=== PATIENT | female | born 1940 | race African-American/Black ===

== ENCOUNTER 2022-09-27 04:45 | Inpatient (IN) | payer MEDICARE, OTHER ==
[~2022-09-27] VITALS: Ht 165.1 cm; Wt 77.9 kg
[2022-09-27] MEDS ORDERED: IPRATROPIUM BROM 0.5 MG/2.5ML INH SOL NEB ONE (06:00)
[2022-09-27] MEDS ORDERED: ALBUTEROL SULF 2.5 MG/0.5ML(0.5%) NEB SOLN NEB ONE (06:00)
[2022-09-27] MEDS ORDERED: FUROSEMIDE 40 MG/4 ML VIAL IV ONE ×2 (06:45→10:45)
[2022-09-27 06:58] LABS: Basophils # (auto) 0 10 ^3/uL (0-0.2); Eosinophils # (auto) 0 10 ^3/uL (0-0.8); Hematocrit 33.3 % (36.0-46.0); Lymphocytes # (auto) 0.8 10 ^3/uL (0.4-5.4); Monocytes # (auto) 0.4 10 ^3/uL (0-1.3)
[2022-09-27 07:01] LABS: Basophils % (auto) 0.5 % (0.0-2.0); Eosinophils % (auto) 0.4 % (0.0-7.0); Hemoglobin 10.8 g/dL (12.2-16.2); Lymphocytes % (auto) 11.9 % (10.0-50.0); Mean Corpuscular Hemoglobin 25.5 pg (28.0-32.0); Mean Corpuscular Hgb Conc. 32.6 g/dL (32.0-36.0); Mean Corpuscular Volume 78.3 fL (80.0-100.0); Monocytes % (auto) 5.4 % (0.0-12.0); Neutrophils # (auto) 5.5 10 ^3/uL (1.6-8.6); Neutrophils % (auto) 81.8 % (37.0-80.0); Red Blood Cells 4.25 10^6/uL (4.0-5.20); Red Cell Distribution Width 17.4 % (11.8-14.3); White Blood Cell 6.8 10^3/uL (4.4-10.8)
[2022-09-27 07:13] LABS: INR 1.02 (0.9-1.15); Partial Thromboplastin Time 28.3 sec (24.6-33.4)
[2022-09-27 07:14] LABS: Albumin 3.2 g/dL (3.4-5.0); Calcium 8.6 mg/dL (8.5-10.1); Magnesium 2.5 mg/dL (1.6-2.6); Potassium 3.6 mmol/L (3.5-5.1)
[2022-09-27 07:19] LABS: BUN/Creatinine Ratio 19.8; Bilirubin, Total 0.6 mg/dL (0.2-1.0); Total Protein 7.6 g/dL (6.4-8.2)
[2022-09-27] MEDS ORDERED: HYDROcodone-ACET 5/325MG TAB PO ONE (07:45)
[2022-09-27] MEDS ORDERED: MORPHINE SULFATE INJ 2 MG/ml SYRG IV PRN ×2 (10:30)
[2022-09-27] MEDS ORDERED: NITROGLYCERIN 0.4 MG SL TAB SL PRN (10:30)
[2022-09-27] MEDS ORDERED: ACETAMINOPHEN 325 MG TAB PO PRN (10:30)
[2022-09-27] MEDS ORDERED: METO25TA93 PO (10:37)
[2022-09-27] MEDS ORDERED: POTA-167 PO (10:37)
[2022-09-27] MEDS ORDERED: AMLO-496 PO (10:37)
[2022-09-27] MEDS ORDERED: FURO40TA4 PO (10:37)
[2022-09-27] MEDS ORDERED: IPRATROPIUM BROM 0.5 MG/2.5ML INH SOL NEB PRN (10:45)
[2022-09-27] MEDS ORDERED: ALBUTEROL SULF 2.5 MG/0.5ML(0.5%) NEB SOLN NEB PRN (10:45)
[2022-09-27] MEDS: IPRATROPIUM BROM 0.5 MG/2.5ML INH SOL NEB SCH ×2 (11:19→18:51)
[2022-09-27] MEDS: ALBUTEROL SULF 2.5 MG/0.5ML(0.5%) NEB SOLN NEB SCH ×2 (11:19→18:51)
[2022-09-27 11:29] LABS: Cholesterol 154 mg/dL (< 200); HDL Cholesterol 75 mg/dL (40-59); LDL Cholesterol 67 mg/dL (< 100); Triglycerides 57 mg/dL (< 150)
[2022-09-27 11:45] VITALS: BP 157/63
[2022-09-27 14:22] LABS: Urine Bacteria FEW /hpf (None Seen); Urine Blood 2+ /uL (Negative); Urine Specific Gravity 1.008 (1.001-1.035); Urine WBC 2 /hpf (0 - 5)
[2022-09-27] MEDS: HYDROcodone-ACET 5/325MG TAB PO PRN ×2 (15:11→21:23)
[2022-09-27] MEDS: FUROSEMIDE 40 MG TAB PO SCH (22:20)
[2022-09-28 05:19] VITALS: BP 137/62
[2022-09-28] MEDS: HYDROcodone-ACET 5/325MG TAB PO PRN ×3 (06:06→17:24)
[2022-09-28 06:40] LABS: BUN/Creatinine Ratio 15.9; Calcium 8.7 mg/dL (8.5-10.1); Potassium 3.4 mmol/L (3.5-5.1)
[2022-09-28 06:42] LABS: Bilirubin, Total 0.5 mg/dL (0.2-1.0); Total Protein 7.2 g/dL (6.4-8.2)
[2022-09-28] MEDS: IPRATROPIUM BROM 0.5 MG/2.5ML INH SOL NEB SCH ×3 (06:49→18:44)
[2022-09-28] MEDS: ALBUTEROL SULF 2.5 MG/0.5ML(0.5%) NEB SOLN NEB SCH ×3 (06:49→18:44)
[2022-09-28 07:11] LABS: Mean Corpuscular Hgb Conc. 32.5 g/dL (32.0-36.0); White Blood Cell 5.3 10^3/uL (4.4-10.8)
[2022-09-28 07:13] LABS: Hematocrit 31.1 % (36.0-46.0); Hemoglobin 10.1 g/dL (12.2-16.2); Mean Corpuscular Hemoglobin 25.9 pg (28.0-32.0); Mean Corpuscular Volume 79.8 fL (80.0-100.0); Red Cell Distribution Width 17.1 % (11.8-14.3)
[2022-09-28 07:19] LABS: Basophils % (manual) 0 (0.0-2.0); Blast Cells 0; Metamyelocytes % 0; Myelocytes % 0; Promyelocytes % 0; Reactive Lymphocytes 0
[2022-09-28 07:43] LABS: Band Neutrophils % (manual) 1; Eosinophils % (manual) 1 (0-7); Lymphocytes % (manual) 26 (10.0-50.0); Monocytes % (manual) 3 (0-12)
[2022-09-28 08:00] VITALS: BP 160/75
[2022-09-28 08:58] VITALS: BP 131/59
[2022-09-28] MEDS: POTASSIUM CHL 10 Meq TABLET PO SCH (11:12)
[2022-09-28] MEDS: amLODIPine BESYLATE 5 MG TAB PO SCH (11:13)
[2022-09-28] MEDS: FUROSEMIDE 40 MG TAB PO SCH ×2 (11:14→21:57)
[2022-09-28] MEDS: METOPROLOL SUCCINATE XL 50 MG TAB PO SCH (11:15)
[2022-09-28 12:31] VITALS: BP 160/75
[2022-09-28 16:18] VITALS: BP 138/68
[2022-09-28 22:07] VITALS: BP 132/67
[2022-09-28] MEDS ORDERED: IOHEXOL 350 MG/ML 100ML IJ ONE (23:12)
[2022-09-29] MEDS: HYDROcodone-ACET 5/325MG TAB PO PRN ×3 (01:50→16:37)
[2022-09-29 05:29] VITALS: BP 137/56
[2022-09-29] MEDS: IPRATROPIUM BROM 0.5 MG/2.5ML INH SOL NEB SCH ×3 (06:06→19:39)
[2022-09-29] MEDS: ALBUTEROL SULF 2.5 MG/0.5ML(0.5%) NEB SOLN NEB SCH ×3 (06:06→19:39)
[2022-09-29 08:00] VITALS: BP_SYST 143; BP_SYST 160; BP_DIAS 60; BP_DIAS 75
[2022-09-29] MEDS: METOPROLOL SUCCINATE XL 50 MG TAB PO SCH (10:48)
[2022-09-29] MEDS: FUROSEMIDE 40 MG TAB PO SCH ×2 (10:49→22:09)
[2022-09-29] MEDS: POTASSIUM CHL 10 Meq TABLET PO SCH (10:50)
[2022-09-29] MEDS: amLODIPine BESYLATE 5 MG TAB PO SCH (10:52)
[2022-09-29 12:00] VITALS: BP 153/77
[2022-09-29] MEDS ORDERED: FUROSEMIDE 40 MG/4 ML VIAL IV ONE (15:00)
[2022-09-29] MEDS ORDERED: POLYETHYLENE GLYCOL 17 GM PWDR PO PRN (16:00)
[2022-09-29 17:00] VITALS: BP 123/60
[2022-09-29 19:51] VITALS: BP 123/60
[2022-09-29 22:00] VITALS: BP 130/66
[2022-09-30] VITALS (7 sets, daily range): BP systolic 124–138; BP diastolic 58–72
[2022-09-30] MEDS: HYDROcodone-ACET 5/325MG TAB PO PRN ×4 (00:29→22:41)
[2022-09-30] MEDS: IPRATROPIUM BROM 0.5 MG/2.5ML INH SOL NEB SCH ×3 (06:42→19:05)
[2022-09-30] MEDS: ALBUTEROL SULF 2.5 MG/0.5ML(0.5%) NEB SOLN NEB SCH ×3 (06:42→19:05)
[2022-09-30] MEDS: amLODIPine BESYLATE 5 MG TAB PO SCH (09:55)
[2022-09-30] MEDS: FUROSEMIDE 40 MG TAB PO SCH ×2 (09:55→22:21)
[2022-09-30] MEDS: POTASSIUM CHL 10 Meq TABLET PO SCH (09:56)
[2022-09-30] MEDS: METOPROLOL SUCCINATE XL 50 MG TAB PO SCH (10:00)
[2022-09-30 11:33] LABS: Basophils # (auto) 0 10 ^3/uL (0-0.2); Basophils % (auto) 0.9 % (0.0-2.0); Eosinophils # (auto) 0.1 10 ^3/uL (0-0.8); Hemoglobin 11.4 g/dL (12.2-16.2); Lymphocytes # (auto) 0.8 10 ^3/uL (0.4-5.4); Monocytes # (auto) 0.4 10 ^3/uL (0-1.3); Neutrophils # (auto) 2.3 10 ^3/uL (1.6-8.6); Red Blood Cells 4.47 10^6/uL (4.0-5.20); Red Cell Distribution Width 16.8 % (11.8-14.3); White Blood Cell 3.5 10^3/uL (4.4-10.8)
[2022-09-30 11:35] LABS: Eosinophils % (auto) 1.5 % (0.0-7.0); Hematocrit 35.3 % (36.0-46.0); Lymphocytes % (auto) 23.2 % (10.0-50.0); Mean Corpuscular Hemoglobin 25.4 pg (28.0-32.0); Mean Corpuscular Hgb Conc. 32.3 g/dL (32.0-36.0); Mean Corpuscular Volume 78.8 fL (80.0-100.0); Monocytes % (auto) 10.3 % (0.0-12.0); Neutrophils % (auto) 64.1 % (37.0-80.0); Nucleated Red Blood Cells % 0.2 %
[2022-09-30 11:53] LABS: Calcium 9.4 mg/dL (8.5-10.1); Potassium 3.3 mmol/L (3.5-5.1)
[2022-09-30 11:55] LABS: Albumin 3.2 g/dL (3.4-5.0); BUN/Creatinine Ratio 13.2
[2022-09-30 11:57] LABS: Bilirubin, Total 0.5 mg/dL (0.2-1.0); Total Protein 7.8 g/dL (6.4-8.2)
[2022-10-01 05:00] VITALS: BP 148/65
[2022-10-01] MEDS: IPRATROPIUM BROM 0.5 MG/2.5ML INH SOL NEB SCH ×3 (06:40→18:47)
[2022-10-01] MEDS: ALBUTEROL SULF 2.5 MG/0.5ML(0.5%) NEB SOLN NEB SCH ×3 (06:40→18:47)
[2022-10-01 08:00] VITALS: BP 146/69
[2022-10-01] MEDS: HYDROcodone-ACET 5/325MG TAB PO PRN ×3 (10:15→22:08)
[2022-10-01] MEDS: amLODIPine BESYLATE 5 MG TAB PO SCH (10:17)
[2022-10-01] MEDS: METOPROLOL SUCCINATE XL 50 MG TAB PO SCH (10:17)
[2022-10-01] MEDS: POTASSIUM CHL 10 Meq TABLET PO SCH (10:18)
[2022-10-01] MEDS: FUROSEMIDE 40 MG TAB PO SCH ×2 (10:18→22:09)
[2022-10-01 12:00] VITALS: BP 143/76
[2022-10-01] MEDS ORDERED: LOPERAMIDE HCL 2 MG CAP/TAB PO PRN (13:00)
[2022-10-01] MEDS: LOPERAMIDE HCL 2 MG CAP/TAB PO PRN ×2 (13:33→22:08)
[2022-10-01 16:00] VITALS: BP 132/71
[2022-10-01 22:00] VITALS: BP 128/63
[2022-10-02 05:00] VITALS: BP 123/63
[2022-10-02] MEDS: IPRATROPIUM BROM 0.5 MG/2.5ML INH SOL NEB SCH ×2 (06:00→11:19)
[2022-10-02] MEDS: ALBUTEROL SULF 2.5 MG/0.5ML(0.5%) NEB SOLN NEB SCH ×2 (06:00→11:19)
[2022-10-02 09:00] VITALS: BP 117/72
[2022-10-02] MEDS: amLODIPine BESYLATE 5 MG TAB PO SCH (09:43)
[2022-10-02] MEDS: FUROSEMIDE 40 MG TAB PO SCH (09:44)
[2022-10-02] MEDS: POTASSIUM CHL 10 Meq TABLET PO SCH (09:44)
[2022-10-02] MEDS: METOPROLOL SUCCINATE XL 50 MG TAB PO SCH (09:44)
[2022-10-02] MEDS: HYDROcodone-ACET 5/325MG TAB PO PRN ×3 (09:45→19:24)
[2022-10-02 14:00] VITALS: BP_SYST 119; BP_SYST 128; BP_DIAS 65; BP_DIAS 70
[2022-10-02] MEDS: LOPERAMIDE HCL 2 MG CAP/TAB PO PRN (19:24)
== END 2022-10-02 19:48 | disposition home health service (06) | DRG 291 ==
LOC: EDBD 04:45 → ER 04:45 → TELE 10:26 → TELE-EAST 23:42
PROVIDERS: ADMIT Registered Nurse; ATTEND Student in an Organized Health Care Education/Training Program
DX: I11.0 Hypertensive heart disease with heart failure (principal); I50.33 Acute on chronic diastolic (congestive) heart failure; N17.0 Acute kidney failure with tubular necrosis; E44.0 Moderate protein-calorie malnutrition; J96.12 Chronic respiratory failure with hypercapnia; D50.9 Iron deficiency anemia, unspecified; Z20.822 Contact with and (suspected) exposure to COVID-19; J44.9 Chronic obstructive pulmonary disease, unspecified; I87.8 Other specified disorders of veins; Z68.29 Body mass index [BMI] 29.0-29.9, adult; Z88.8 Allergy status to other drugs, medicaments and biological substances
CPT/HCPCS: 36415; 36600; 71045; 71275; 80053; 80061; 81001; 82805; 83036; 83735; 83880; 84443; 84484; 85007; 85025; 85027; 85379; 85610; 85730; 87426; 93005; 93306; 93970; 94640; 96374; 96376; G0378